=== PATIENT | female | born 1980 | race Caucasian/White ===

== ENCOUNTER 2025-03-22 19:04 | Emergency (ER) | payer OTHER, SELFPAY ==
[2025-03-22 19:07] VITALS: BP 126/91; PULSE 98; TEMP 37.2; O2SAT 95; BMI 36.2
--- NOTE | 2025-03-22 19:10 | ED.GENADUL1 ---
HPI HPI - General Adult General Chief complaint: Headache Stated complaint: HEADACHE Time Seen by Provider: 03/22/25 19:08 History of Present Illness HPI narrative: Patient is a 44-year-old female who presents to the emergency department today for evaluation of concerns for migraine headache. As she began experiencing a typical migraine headache mostly to the right parietal and temporal region. She reports associated symptoms of photophobia. She mentions she is on topiramate and magnesium for her migraines as maintenance medication daily. Denies any fever/chills, ear pain, or sore throat. No neck/back pain, chest pain, shortness of breath. No nauseous. She mentions that the only medication she can take for her nausea is Phenergan. She has seen a neurologist in the past however is currently in between neurologist and does have an appointment May 18 to reestablish care with neurology. Related Data Home Medications ?Medication ?Instructions ?Recorded ?Confirmed gabapentin 600 mg tablet 600 mg PO TID 03/22/25 03/22/25 magnesium oxide 400 mg PO DAILY 03/22/25 03/22/25 topiramate 200 mg tablet (Topamax) 200 mg PO BID 03/22/25 03/22/25 Allergies Allergy/AdvReac Type Severity Reaction Status Date / Time ketorolac (From Toradol) Allergy Severe Anaphylaxis Verified 03/22/25 19:27 metoclopramide (From Reglan) Allergy Severe Hives Verified 03/22/25 19:27 Penicillins Allergy Severe Hives Verified 03/22/25 19:27 prochlorperazine (From Allergy Severe itchy Verified 03/22/25 19:27 Compazine) Sulfa (Sulfonamide Allergy Severe Anaphylaxis Verified 03/22/25 19:27 Antibiotics) sulfacetamide (From Allergy Severe Anaphylaxis Verified 03/22/25 19:27 Sulfacet-R) sulfur (From Sulfacet-R) Allergy Severe Anaphylaxis Verified 03/22/25 19:27 NSAIDS (Non-Steroidal Allergy Intermediate Hives Verified 03/22/25 19:27 Anti-Inflamma Opioid HPI Opioid Management Most Recent Opioid Data: Last Pain Scale 10 03/22/25, 19:07 Review of Systems ROS Status of ROS 10 or more systems reviewed and unremarkable except as noted in history and below PFSH PFSH Social History Little interest or pleasure in doing things: not at all Feeling down, depressed, or hopeless: not at all Exam Narrative Exam Narrative: Constituational: Awake/ alert, no apparent distress, well hydrated HENMT: normocephalic, no temporal scalp tenderness, internal/external ears normal, moist oral mucous membranes and oropharynx normal Eyes: PERRL/EOMI and conjunctivae normal Neck: ROM intact, no meningeal signs Chest: inspection of chest normal Respiratory: Normal respiratory effort, clear to auscultation bilaterally Cardio: regular rate and regular rhythm GI: soft to palpation and non-tender Back: nontender MSK: ROM intact, +NVI Skin: no rashes or petechiae Neuro: no focal deficits Psych: Unkempt, mental status grossly normal Constitutional Vital Signs, click to edit/add: Last Vital Signs Temp 99.0 F 03/22/25 19:07 Pulse 98 H 03/22/25 19:07 Resp 16 03/22/25 19:07 BP 126/91 03/22/25 19:07 Pulse Ox 95 03/22/25 19:07 O2 Del Method Room Air 03/22/25 19:07 Course Vital Signs Vital signs: Vital Signs Temperature 99.0 F 03/22/25 19:07 Pulse Rate 98 H 03/22/25 19:07 Respiratory Rate 16 03/22/25 19:07 Blood Pressure 126/91 03/22/25 19:07 Pulse Oximetry 95 03/22/25 19:07 Oxygen Delivery Method Room Air 03/22/25 19:07 Temperature 99.0 F 03/22/25 19:07 Pulse Rate 98 H 03/22/25 19:07 Respiratory Rate 16 03/22/25 19:07 Blood Pressure 126/91 03/22/25 19:07 Pulse Oximetry 95 03/22/25 19:07 Oxygen Delivery Method Room Air 03/22/25 19:07 Medical Decision Making [facility] Narrative Medical decision making narrative: The patient is a nontoxic-appearing 44-year-old female reportedly from [place] who presented to the emergency department today for evaluation of concerns for vague complaints typical migraine headache. Initial examination vital signs overall stable. No concerning neurologic findings on exam. Additionally no clinical evidence of infectious processes such as meningitis. No temporal scalp tenderness. Patient with multiple antibiotic allergies and did verify all these at the bedside with nursing while patient was being triaged. She was very vague in providing details related to some of her reactions and mentioned multiple times she is requesting Phenergan and nonopioid analgesic for. Advised that no opioid analgesics would be given for management of her migraine headache in the emergency department tonight and patient was offered IV fluids with form of and Solu-Medrol. Patient subsequently was requesting Nubain and advised again that no opioids would be given for management of her headache tonight. Patient additional plan of care for evaluation of her headache with labs to rule out medical therapy above. Was subsequently informed by nursing when nursing entered the room to start her IV that she was not there. After 5 minutes nursing went back to recheck the room and was subsequently informed the patient was no longer there. Patient did elope from the emergency department after evaluation. Medical Records Medical records reviewed: Yes I reviewed the patient's medical records Discharge Plan Discharge Stand Alone Forms: Portal Instructions Chief Complaint: Headache Clinical Impression: Headache Patient Disposition: Left Against Medical Advice Prescriptions / Home Meds: No Action topiramate [Topamax] 200 mg tablet 200 mg PO BID magnesium oxide 400 mg magnesium capsule 400 mg PO DAILY gabapentin 600 mg tablet 600 mg PO TID Print Language: Danish Referrals: Physician,Non-Staff, MD [Primary Care Provider] - 1 week Discharge Date/Time: 03/22/25 20:01
== END 2025-03-22 20:01 | disposition left against medical advice (07) ==
PROVIDERS: Emergency Provider Emergency Medicine; PCP Nurse Practitioner Family
DX: R51.9 Headache, unspecified (principal)
CPT/HCPCS: 80053; 85652; 99281